=== PATIENT | male | born 1995 | race Two or more races ===

== ENCOUNTER 2017-10-22 23:32 | Emergency (ER) | payer SELFPAY ==
[~2017-10-22] VITALS: Ht 175.3 cm; Wt 68.5 kg
--- NOTE | 2017-10-22 23:42 | NUR ---
BB RA88 & [employer] FROM [facility] FOR ETOH INTOXICATION AND AGGRESSIVE BEHAVIOR. PT RESPONSIVE TO VERBAL AND PAINFUL STIMULI. RR EVEN AND UNLABORED. NO SOB NOTED. NAD NOTED. NO NVD AT THIS TIME. PT PLACED ON MONITOR. PT WAITING FOR MD DUKE.
--- NOTE | 2017-10-23 00:44 | NUR ---
CARINA DESAI AT [facility]
--- NOTE | 2017-10-23 02:05 | NUR ---
Patient is resting comfortably in bed with eyes closed. Easily aroused. VSS
--- NOTE | 2017-10-23 02:53 | NUR ---
SPOKE TO NANO GOMEZ [phone]
--- NOTE | 2017-10-23 02:55 | NUR ---
PT [id number]. DR ULRICH MADE AWARE
--- NOTE | 2017-10-23 03:03 | NUR ---
GIRLFRIEND AT BEDSIDE. PT NOTED WITH STEADY GAIT TO RESTROOM. DR. ULRICH MADE AWARE
[2017-10-23 03:05] VITALS: BP 108/64
== END 2017-10-23 03:06 | disposition home or self-care (01) ==
LOC: ER 23:35
DX: F10.129 Alcohol abuse with intoxication, unspecified (principal)
CPT/HCPCS: 82962; 99283; A4606; Z7610